=== PATIENT | male | born 1935 | race Caucasian/White ===

== ENCOUNTER 2020-08-14 11:13 | Emergency (ER) | payer MEDICARE, OTHER ==
[~2020-08-14] VITALS: Ht 180.3 cm; Wt 79.4 kg
[2020-08-14 11:15] VITALS: BP 152/80
[2020-08-14] MEDS ORDERED: OXYMETAZOLINE (AFRIN) 0.05% NA 30 ML BTL ONE (11:16)
--- NOTE | 2020-08-14 11:45 | ED EENT ---
History of Present Illness General Chief Complaint: Nasal Problems Stated Complaint: EPISTAXIS Source: patient Exam Limitations: no limitations History of Present Illness Date Seen by Provider: August 14, 2020 Time Seen by Provider: 11:18 Initial Comments Here with report of repeat episode of nosebleed. Apparently he was seen in [place] overnight and left the early this morning for nosebleed. Had INR checked which was 3.7. His nosebleed did eventually stop and he is to follow-up with his doctor regarding appropriate Coumadin dosing. States that he had stopped to go to the restroom and his nose started bleeding again approximately 10 minutes prior to arrival. He did hold pressure. Currently it appears to be stopped but he lives approximately 30 minutes from here and was concerned so wanted to be reevaluated. Denies injury or other concerns. Timing/Duration: abrupt, intermittent Severity: moderate Location: nose Prearrival Treatment: over the counter meds, squeezing nostrils Associated Symptoms: No cough, No facial pain/swelling, No fever, No sinus infection Allergies and Home Medications Allergies Coded Allergies: No Known Drug Allergies (Unverified , 08/14/20) Patient Home Medication List Home Medication List Reviewed: Yes Review of Systems Review of Systems Constitutional: see HPI; No chills, No fever Nose: clots, epistaxis Mouth: no symptoms reported Respiratory: No cough, No short of breath Cardiovascular: no symptoms reported Gastrointestinal: No nausea, No vomiting Past Kxxvqjr-Rrqrbp-Unnfrj Hx Past Med/Social Hx: Reviewed Nursing Past Med/Soc Hx Patient Social History Alcohol Use: Denies Use Smoking Status: Former Smoker Past Medical History Surgeries: Yes Coronary Stent Respiratory: No Cardiac: Yes Coronary Artery Disease, Hypertension, Irregular Heartbeat Genitourinary: Yes (Chronic kidney disease) Gastrointestinal: Yes Crohns Disease Endocrine: Yes Diabetes, Non-Insulin dep Cancer: Yes Prostate, Skin Did You Recieve Any Treatments: Yes What Type of Treatment Did You: Surgical Intervention Family Medical History Reviewed Nursing Family Hx Hypertension Physical Exam Vital Signs Vital Signs - First Documented 08/14/20 11:15 Temp 36.7 Pulse 93 Resp 16 B/P (MAP) 152/80 (104) Pulse Ox 96 O2 Delivery Room Air Height, Weight, BMI Height: '" Weight: lbs. oz. kg; BMI Method: General Appearance: WD/WN, no apparent distress Nose: dried blood, other (No obvious bleeding noted in pharynx or either nare. Old blood noted to bilateral nares left greater than right.) Neck: full range of motion, supple Cardiovascular: regular rate, rhythm, no murmur Respiratory: lungs clear, normal breath sounds Neurologic/Psychiatric: alert, oriented x 3 Progress/Results/Core Measures Results/Orders My Orders Orders - SERGIO SILVA MD Oxymetazoline 0.05% Nasal [place] (Afrin 0. (08/14/20 11:16) Medications Given in ED Current Medications Medications Dose Ordered Sig/Antonia Route Start Time Stop Time Status Last Admin Dose Admin Oxymetazoline HCl 30 ml STK-MED ONCE .ROUTE 08/14/20 11:16 08/14/20 11:26 DC 08/14/20 12:03 30 ML Vital Signs/I&O 08/14/20 11:15 Temp 36.7 Pulse 93 Resp 16 B/P (MAP) 152/80 (104) Pulse Ox 96 O2 Delivery Room Air Progress Progress Note : Progress Note Seen and evaluated. [facility] and found INR 3.7 and they are faxing labs. Oxymetolazone 3 sprays to each nostril given. Direct pressure applied afterwards. Bleeding seems to have resolved but we will monitor for 20 minutes. Monitor patient. 1310: Patient was actually being dismissed has no started bleeding again. This was occurring from the left nare. 4.5 cm rapid Rhino placed with good hemostasis. Discharged home with return precautions. Patient verbalized understanding of instructions and agreement with plan. Departure Impression Primary Impression: Epistaxis Disposition: 01 HOME, SELF-CARE Condition: Stable Departure-Patient Inst. Decision time for Depature: 13:10 Referrals: MARK AMIN MD,VASHTI ROBERSON (PCP/Family) Primary Care Physician Patient Instructions: Nosebleeds (DC) Add. Discharge Instructions: All discharge instructions reviewed with patient and/or family. Voiced understanding. Follow-up with Dr. Dennis today or tomorrow for recheck and further evaluation and to discuss Coumadin/warfarin dosing. If nose starts to bleed, apply direct pressure while leaning slightly forward and keep pressure for 15 to 20 minutes. Do not blow your nose. Continue home medications as otherwise directed. Return for uncontrolled bleeding despite direct pressure or bleeding that continues greater than 15 to 20 minutes, breathing problems, weakness, cough, vomiting or other concerns as needed. You may follow-up with Dr. Amin's office for recheck and further evaluation as well. You may call his office for appointment. You have a rapid Rhino placed. You should keep this in place for the next 2 days and then have it removed. You may return to the emergency department for removal, your doctor's office or with Dr. Amin. SERGIO SILVA MD August 14, 2020 11:45
== END 2020-08-14 13:19 | disposition home or self-care (01) ==
LOC: ER FS 11:15 → EDBD 11:15 → ER FS 13:19
DX: R04.0 Epistaxis (principal); I12.9 Hypertensive chronic kidney disease with stage 1 through stage 4 chronic kidney disease, or unspecified chronic kidney disease; E11.22 Type 2 diabetes mellitus with diabetic chronic kidney disease; N18.9 Chronic kidney disease, unspecified; I25.10 Atherosclerotic heart disease of native coronary artery without angina pectoris; Z95.5 Presence of coronary angioplasty implant and graft; Z87.891 Personal history of nicotine dependence
CPT/HCPCS: 99283

== ENCOUNTER 2020-08-16 08:06 | Day surgery (SDC) | payer MEDICARE ==
[~2020-08-16] VITALS: Ht 180.3 cm; Wt 79.5 kg
[2020-08-16] VITALS (12 sets, daily range): BP systolic 117–145; BP diastolic 64–82
[2020-08-16] MEDS ORDERED: WARF-48 PO ×2 (08:52)
[2020-08-16] MEDS ORDERED: CALC600T91 PO (08:52)
[2020-08-16] MEDS ORDERED: MULT-974 PO (08:52)
[2020-08-16] MEDS ORDERED: ASPI-999 PO (08:52)
[2020-08-16] MEDS ORDERED: METO-333 PO (08:52)
[2020-08-16] MEDS ORDERED: SELE200T11 PO (08:52)
[2020-08-16] MEDS ORDERED: CHOL500050 PO (08:52)
[2020-08-16] MEDS ORDERED: MESA800T9 PO (08:52)
[2020-08-16] MEDS ORDERED: HYDR12.56 PO (08:52)
[2020-08-16] MEDS ORDERED: ATOR10TA66 PO (08:52)
[2020-08-16] MEDS ORDERED: LISI20TA26 PO (08:52)
[2020-08-16] MEDS: LACTATED RINGERS 1,000 ML IV PRN ×2 (08:58→12:27)
[2020-08-16] MEDS ORDERED: fentaNYL INJ 100 MCG/2 ML AMP ONE (09:13)
[2020-08-16] MEDS ORDERED: LIDOCAINE/EPI 1%-1:100,000 (XYLOCAINE) 20ML ONE (09:51)
[2020-08-16] MEDS ORDERED: COCAINE HCL 4% 2 ML SYR ONE (09:51)
[2020-08-16] MEDS ORDERED: MUPIROCIN 2% OINT 22 GM (BACTROBAN) TUBE ONE (09:51)
[2020-08-16] MEDS ORDERED: PHENYLEPHRINE 0.5% NASAL SPR (NEO-SYNEPHRINE) REG ONE (09:51)
--- NOTE | 2020-08-16 10:48 | Progress Note-Pre Operative ---
Pre-Operative Progress Note H&P Reviewed The H&P was reviewed, patient examined and no changes noted. Date Seen by Provider: August 16, 2020 Time Seen by Provider: 11:00 Date H&P Reviewed: August 16, 2020 Time H&P Reviewed: 11:00 Pre-Operative Diagnosis: Right Posterior Epistaxis MAKR PAIGE MD August 16, 2020 10:48
--- NOTE | 2020-08-16 11:41 | Progress Note-Post Operative ---
Post-Operative Progess Note Surgeon (s)/Art Class Model (s) Surgeon MARK PAIGE MD Art Class Model n/a Pre-Operative Diagnosis Right Posterior Epistaxis Post-Operative Diagnosis same Post-Op Procedure Note Date of Procedure: August 16, 2020 Name of Procedure Performed: Endoscopic Repair of Right Posterior Epistaxis Description & Findings Description and Findings: n/a Anesthesia Type get Estimated Blood Loss minimal Packing none. Specimen(s) collected/removed none MARK PAIGE MD August 16, 2020 11:41
[2020-08-16] MEDS ORDERED: ONDANSETRON 4 MG/2 ML (SDV) Z0FRAN ONE (11:44)
[2020-08-16] MEDS ORDERED: LIDOCAINE PF 2% 5 ML (XYLOCAINE) VIAL ONE (11:44)
[2020-08-16] MEDS ORDERED: proPOfol 200 MG/20 ML (DIPRIVAN) VIAL IV ONE (11:44)
[2020-08-16] MEDS ORDERED: SEVOFLURANE (ULTANE) 15 ML INHAL SOLN ONE (11:44)
[2020-08-16] MEDS ORDERED: NEOSTIGMINE 3 MG/3 ML VIAL ONE (11:44)
[2020-08-16] MEDS ORDERED: GLYCOPYRROLATE 0.2 MG/ML (ROBINUL) 2 ML VIAL ONE (11:44)
[2020-08-16] MEDS ORDERED: ROCURONIUM 10 MG/ML 5 ML SYRINGE IV ONE (11:44)
[2020-08-16] MEDS ORDERED: D5 1/2 NS W/KCL 20 MEQ/L 1,000 ML IV SCH (11:45)
[2020-08-16] MEDS ORDERED: ACETAMINOPHEN 500 MG TAB (TYLENOL) PO PRN (11:45)
[2020-08-16] MEDS ORDERED: PHENYLEPHRINE 0.5% NASAL SPR (NEO-SYNEPHRINE) REG PRN (11:45)
[2020-08-16] MEDS ORDERED: HYDROcodone/APAP 5 MG/325 MG (LORTAB) TAB PO PRN (11:45)
[2020-08-16 12:05] LABS: BASOPHILS % (AUTO) 0 % (0-10); EOSINOPHILS # (AUTO) 0.1 10^3/uL (0.0-0.3); EOSINOPHILS % (AUTO) 2 % (0-10); HEMATOCRIT 24 % (40-54); HEMOGLOBIN 7.8 g/dL (13.3-17.7); LYMPHOCYTES # (AUTO) 1.3 10^3/uL (1.0-4.0); LYMPHOCYTES % (AUTO) 19 % (12-44); MEAN CORPUSCULAR HEMOGLOBIN 32 pg (25-34); MEAN CORPUSCULAR HGB CONC 33 g/dL (32-36); MEAN CORPUSCULAR VOLUME 98 fL (80-99); MEAN PLATELET VOLUME 10.5 fL (9.0-12.2); MONOCYTES # (AUTO) 0.6 10^3/uL (0.0-1.0); MONOCYTES % (AUTO) 9 % (0-12); NEUTROPHILS # (AUTO) 4.8 10^3/uL (1.8-7.8); NEUTROPHILS % (AUTO) 70 % (42-75); PLATELET COUNT 133 10^3/uL (130-400); WHITE BLOOD COUNT 6.9 10^3/uL (4.3-11.0)
[2020-08-16 12:11] LABS: INR 1.2 (0.8-1.4); PROTHROMBIN TIME PATIENT 15.2 SEC (12.2-14.7)
[2020-08-16] MEDS ORDERED: HYDROcodone/APAP 5 MG/325 MG (LORTAB) TAB ONE (12:31)
--- NOTE | 2020-08-16 15:26 | Anesthesia-General Post-Op ---
General Patient Condition Mental Status/LOC: Same as Preop Cardiovascular: Satisfactory Nausea/Vomiting: Absent Respiratory: Satisfactory Pain: Controlled Complications: Absent Post Op Complications Complications None Follow Up Care/Instructions Patient Instructions None needed. Anesthesia/Patient Condition Patient Condition Patient was seen after the procedure and he was doing well, no complaints, stable vital signs, no apparent adverse anesthesia problems. KARLOS BRASWELL DO August 16, 2020 15:25
== END 2020-08-16 14:08 | disposition home or self-care (01) ==
LOC: SDC 08:06
PROVIDERS: ATTEND Otolaryngology Otolaryngology/Facial Plastic Surgery
DX: R04.0 Epistaxis (principal); I10 Essential (primary) hypertension; I25.10 Atherosclerotic heart disease of native coronary artery without angina pectoris; I48.91 Unspecified atrial fibrillation; Z79.899 Other long term (current) drug therapy; Z79.82 Long term (current) use of aspirin
CPT/HCPCS: 36415; 85025; 85610; 87081; 87636